=== PATIENT | female | born 1975 | race American Indian/Alaskan Native ===

== ENCOUNTER 2019-06-19 06:50 | Emergency (ER) | payer SELFPAY ==
[2019-06-19 07:01] VITALS: BP 143/75
[2019-06-19] MEDS ORDERED: traMADol 50 MG TAB PO ONE (08:21)
--- NOTE | 2019-06-19 08:26 | Emergency Department Report ---
ED Extremity Problem HPI - General Chief complaint: Extremity Injury, Lower Stated complaint: LEG PAIN Time Seen by Provider: 06/19/19 08:12 Source: patient Mode of arrival: Ambulatory Limitations: No Limitations - History of Present Illness Initial comments: 43-year-old female with a past medical history diabetes, obesity, hypertension, and previous tubal ligation and gastric sleeve surgery presents to the Hospital complains of left leg pain 4 days. Pain started at the back and they went to the hip and spread down the posterior leg down to the ankle. Similar pain in the past with sciatica. Patient taken Tylenol without relief. Pain exacerbated with prolonged sitting and feels better with movement. She cannot take NSAIDs because of her previous gastric sleeve surgery. She denies recent travel, history of PE/DVT, leg swelling, trauma, urinary incontinence, leg weakness, or fever. - Related Data Previous Rx's Medication Instructions Recorded Last Taken Type Naproxen [Naprosyn TAB] 500 mg PO BID PRN #20 tablet 04/18/15 Unknown Rx Clotrimazole 1%(Nf) [Lotrimin 1 applicatio TP BID #1 bottle 07/25/16 Unknown Rx Lotion] Cyclobenzaprine [Flexeril] 10 mg PO TID PRN #15 tablet 07/25/16 Unknown Rx Ibuprofen [Motrin 800 MG tab] 800 mg PO Q8HR PRN #30 tablet 07/25/16 Unknown Rx traMADol [Ultram 50 MG tab] 50 mg PO Q6HR PRN #20 tablet 06/19/19 Unknown Rx Allergies Allergy/AdvReac Type Severity Reaction Status Date / Time No Known Allergies Allergy Verified 07/25/16 18:01 ED Review of Systems ROS: Stated complaint: LEG PAIN Other details as noted in HPI Comment: All other systems reviewed and negative ED Past Medical Hx - Past Medical History Previous Medical History?: Yes Hx Hypertension: Yes Hx Diabetes: Yes (Pre Diabetic) - Surgical History Past Surgical History?: Yes Additional Surgical History: tubal ligation, gastric sleeve - Social History Smoking Status: Current Every Day Smoker Substance Use Type: Alcohol, Marijuana - Medications Home Medications: Home Medications Medication Instructions Recorded Confirmed Last Taken Type Naproxen [Naprosyn TAB] 500 mg PO BID PRN #20 tablet 04/18/15 04/24/15 Unknown Rx Clotrimazole 1%(Nf) [Lotrimin 1 applicatio TP BID #1 bottle 07/25/16 Unknown Rx Lotion] Cyclobenzaprine [Flexeril] 10 mg PO TID PRN #15 tablet 07/25/16 Unknown Rx Ibuprofen [Motrin 800 MG tab] 800 mg PO Q8HR PRN #30 tablet 07/25/16 Unknown Rx traMADol [Ultram 50 MG tab] 50 mg PO Q6HR PRN #20 tablet 06/19/19 Unknown Rx ED Physical Exam - General Limitations: No Limitations - Other Other exam information: Gen.: No acute distress Head: Atraumatic Eyes: Normal appearance ENT: Moist mucous membranes Neck: Normal appearance, no posterior midline tenderness, no meningismus Chest: Clear to auscultation bilaterally Cardiovascular: Regular rate and rhythm Abdomen: Normal appearance, soft, nontender, no rebound or guarding, normal bowel sounds Back: Normal appearance, nontender, and tenderness to the right gluteal area/sci atic notch with palpation Extremity: Full range of motion, normal appearance, 2+ DP pulses left foot Neuro: Alert and oriented 3, clear speech, no focal motor or sensory deficit Psychiatric: Appropriate Skin: No rash ED Course Vital Signs 06/19/19 07:00 Temperature 98.6 F Pulse Rate 81 Respiratory 20 Rate Blood Pressure 143/75 O2 Sat by Pulse 99 Oximetry ED Medical Decision Making - Medical Decision Making Patient presents to the hospital with radicular pain similar to previous pain in the past. No trauma. No leg swelling. Good pulses. Patient by tramadol will be discharged with tramadol to take at home for pain. Follow up PMD encouraged - Differential Diagnosis had a cold, DVT, radiculopathy, vascular disease Critical Care Time: No Critical care attestation.: If time is entered above; I have spent that time in minutes in the direct care of this critically ill patient, excluding procedure time. ED Disposition Clinical Impression: Left sided sciatica Disposition: DC-01 TO HOME OR SELFCARE Is pt being admited?: No Does the pt Need Aspirin: No Condition: Stable Instructions: Sciatica (ED) Additional Instructions: Take the medication as prescribed. Follow-up with your doctor or with the doctor/clinic provided. Return if symptoms worsen as indicated by your discharge instructions. Prescriptions: traMADol [Ultram 50 MG tab] 50 mg PO Q6HR PRN #20 tablet PRN Reason: Pain Referrals: [facility], [place] [Primary Care Provider] - 3-5 Days your, doctor [Other] - 3-5 Days Time of Disposition: 08:25
== END 2019-06-19 08:34 | disposition home or self-care (01) ==
LOC: ED 06:50
DX: M54.32 Sciatica, left side (principal); I10 Essential (primary) hypertension; E11.9 Type 2 diabetes mellitus without complications; F17.200 Nicotine dependence, unspecified, uncomplicated; F12.10 Cannabis abuse, uncomplicated; Z98.51 Tubal ligation status; Z98.890 Other specified postprocedural states; Z79.899 Other long term (current) drug therapy

== ENCOUNTER 2020-06-22 09:56 | Emergency (ER) | payer SELFPAY ==
--- NOTE | 2020-06-22 10:42 | Emergency Department Report ---
ED ENT HPI - General Chief complaint: Dental/Oral Stated complaint: RT SIDE TOOTHACHE Time Seen by Provider: 06/22/20 10:37 Source: patient Mode of arrival: Ambulatory Limitations: No Limitations - History of Present Illness Initial comments: 44 y/o female comes in for a 2 day history of right upper and right lower teeth pain. Denies any fever has chills. Taking Tylenol not able to take inbuprofen secondary to by-pass gastric surgery. MD complaint: tooth pain Onset/Timin -: days(s) Location: tooth # Severity: moderate Quality: stabbing, aching Consistency: constant Improves with: none Worsens with: none - Related Data Previous Rx's Medication Instructions Recorded Last Taken Type Naproxen [Naprosyn TAB] 500 mg PO BID PRN #20 tablet 04/18/15 Unknown Rx Clotrimazole 1%(Nf) [Lotrimin 1 applicatio TP BID #1 bottle 07/25/16 Unknown Rx Lotion] Cyclobenzaprine [Flexeril] 10 mg PO TID PRN #15 tablet 07/25/16 Unknown Rx Ibuprofen [Motrin 800 MG tab] 800 mg PO Q8HR PRN #30 tablet 07/25/16 Unknown Rx traMADoL [Ultram 50 MG tab] 50 mg PO Q6HR PRN #20 tablet 06/19/19 Unknown Rx Amoxicillin/K Clav Tab [Augmentin 1 tab PO Q12HR #20 tab 06/22/20 Unknown Rx 875 mg] traMADoL [Ultram 50 MG tab] 50 mg PO Q6HR PRN #12 tablet 06/22/20 Unknown Rx Allergies Allergy/AdvReac Type Severity Reaction Status Date / Time No Known Allergies Allergy Verified 07/25/16 18:01 ED Dental HPI - General Chief complaint: Dental/Oral Stated complaint: RT SIDE TOOTHACHE Time Seen by Provider: 06/22/20 10:37 Source: patient Mode of arrival: Ambulatory Limitations: No Limitations - Related Data Previous Rx's Medication Instructions Recorded Last Taken Type Naproxen [Naprosyn TAB] 500 mg PO BID PRN #20 tablet 04/18/15 Unknown Rx Clotrimazole 1%(Nf) [Lotrimin 1 applicatio TP BID #1 bottle 07/25/16 Unknown Rx Lotion] Cyclobenzaprine [Flexeril] 10 mg PO TID PRN #15 tablet 07/25/16 Unknown Rx Ibuprofen [Motrin 800 MG tab] 800 mg PO Q8HR PRN #30 tablet 07/25/16 Unknown Rx traMADoL [Ultram 50 MG tab] 50 mg PO Q6HR PRN #20 tablet 06/19/19 Unknown Rx Amoxicillin/K Clav Tab [Augmentin 1 tab PO Q12HR #20 tab 06/22/20 Unknown Rx 875 mg] traMADoL [Ultram 50 MG tab] 50 mg PO Q6HR PRN #12 tablet 06/22/20 Unknown Rx Allergies Allergy/AdvReac Type Severity Reaction Status Date / Time No Known Allergies Allergy Verified 07/25/16 18:01 ED Review of Systems ROS: Stated complaint: RT SIDE TOOTHACHE Other details as noted in HPI Comment: All other systems reviewed and negative ED Past Medical Hx - Past Medical History Previous Medical History?: No Hx Hypertension: No Hx Diabetes: No - Surgical History Past Surgical History?: Yes Additional Surgical History: tubal ligation, gastric sleeve - Social History Smoking Status: Current Some Day Smoker Substance Use Type: Alcohol - Medications Home Medications: Home Medications Medication Instructions Recorded Confirmed Last Taken Type Naproxen [Naprosyn TAB] 500 mg PO BID PRN #20 tablet 04/18/15 04/24/15 Unknown Rx Clotrimazole 1%(Nf) [Lotrimin 1 applicatio TP BID #1 bottle 07/25/16 Unknown Rx Lotion] Cyclobenzaprine [Flexeril] 10 mg PO TID PRN #15 tablet 07/25/16 Unknown Rx Ibuprofen [Motrin 800 MG tab] 800 mg PO Q8HR PRN #30 tablet 07/25/16 Unknown Rx traMADoL [Ultram 50 MG tab] 50 mg PO Q6HR PRN #20 tablet 06/19/19 Unknown Rx Amoxicillin/K Clav Tab [Augmentin 1 tab PO Q12HR #20 tab 06/22/20 Unknown Rx 875 mg] traMADoL [Ultram 50 MG tab] 50 mg PO Q6HR PRN #12 tablet 06/22/20 Unknown Rx ED Physical Exam - General Limitations: No Limitations General appearance: alert, in no apparent distress - Head Head exam: Present: atraumatic, normocephalic - Eye Eye exam: Present: normal appearance - ENT ENT exam: Present: mucous membranes moist - Expanded ENT Exam Expanded Teeth exam: Present: dental tenderness #, gingival enlargement - Neurological Exam Neurological exam: Present: alert, oriented X3, normal gait - Psychiatric Psychiatric exam: Present: normal affect, normal mood - Skin Skin exam: Present: warm, dry, intact, normal color. Absent: rash ED Course Vital Signs 06/22/20 10:00 Respiratory 18 Rate O2 Sat by Pulse 100 Oximetry ED Medical Decision Making - Medical Decision Making 44 y/o female comes in for a 2 day history of right upper and right lower teeth pain. Denies any fever has chills. Taking Tylenol not able to take inbuprofen secondary to by-pass gastric surgery. Patient will be placed on Augmentin and to continue with pain medication and to follow up with a dentist Critical care attestation.: If time is entered above; I have spent that time in minutes in the direct care of this critically ill patient, excluding procedure time. ED Disposition Clinical Impression: Abscess, dental Disposition: DC-01 TO HOME OR SELFCARE Is pt being admited?: No Does the pt Need Aspirin: No Condition: Stable Instructions: Dental Abscess (ED) Additional Instructions: Complete antibiotics and take pain medication. Do not operate heavy machinery while taking Tramadol. Prescriptions: Amoxicillin/K Clav Tab [Augmentin 875 mg] 1 tab PO Q12HR #20 tab traMADoL [Ultram 50 MG tab] 50 mg PO Q6HR PRN #12 tablet PRN Reason: Pain Referrals: [facility] [Provider Group] - 3-5 Days Forms: Work/School Release Form(ED)
== END 2020-06-22 11:54 | disposition home or self-care (01) ==
LOC: ED 09:56
DX: K04.7 Periapical abscess without sinus (principal); F17.200 Nicotine dependence, unspecified, uncomplicated; Z98.51 Tubal ligation status; Z79.899 Other long term (current) drug therapy
CPT/HCPCS: 99281

== ENCOUNTER 2020-11-22 21:01 | Emergency (ER) | payer SELFPAY | END 2020-11-22 21:36 | disposition left against medical advice (07) | LOC: ED 21:01 | DX: Z53.21 Procedure and treatment not carried out due to patient leaving prior to being seen by health care provider (principal) ==